=== PATIENT | female | born 1970 | race Caucasian/White ===

== ENCOUNTER 2016-07-28 17:39 | Emergency (ER) | payer BC ==
--- NOTE | 2016-07-28 18:05 | EDM.PDOC ---
ED HISTORY OF PRESENT ILLNESS - General Chief Complaint: Cardiovascular Problem Stated Complaint: HIGH BP Time Seen by Provider: 07/28/16 18:05 Source of Information: Reports: Patient - History of Present Illness INITIAL COMMENTS - FREE TEXT/NARRATIVE: Patient was evaluated at today for headache and right sided neck pain. Headache has been going on for several days, minimal improvement with ibuprofen yesterday, she has not tried medication today. She reports this is NOT the worst headache she has ever had. Her BP was found to be quite elevated at the clinic, so she was referred to ER for further evaluation. She did have labwork there and we have called to ask for these records. - Related Data Allergies/ADRs: Allergies Allergy/AdvReac Type Severity Reaction Status Date / Time No Known Allergies Allergy Verified 07/28/16 18:10 Home Meds: Home Meds Cyclobenzaprine [Flexeril] 5 mg PO BID PRN #15 tablet 07/28/16 [Rx] Lisinopril 10 mg PO DAILY #30 tablet 07/28/16 [Rx] ED ROS GENERAL - Review of Systems Review Of Systems: See Below Constitutional: Reports: no symptoms HEENT: Reports: Ear pain. Denies: Rhinitis, Sinus problem Respiratory: Denies: Shortness of Breath, Wheezing, Cough Cardiovascular: Reports: Blood pressure problem. Denies: Chest pain, Dyspnea on exertion, Edema, Lightheadedness Endocrine: Reports: fatigue GI/Abdominal: Reports: No symptoms Musculoskeletal: Reports: neck pain. Denies: shoulder pain Skin: Reports: no symptoms Neurological: Reports: Headache. Denies: Confusion, Dizziness, Numbness, Tremors, Difficulty Walking, Weakness, Change in Speech, Gait Disturbance Psychiatric: Reports: No symptoms ED EXAM, GENERAL - Physical Exam Exam: See Below Exam Limited By: No limitations General Appearance: alert, WD/WN, mild distress Eye Exam: bilateral eye: PERRL Ears: normal external exam, normal canal, normal TMs Throat/Mouth: Normal inspection, Normal oropharynx Head: atraumatic, normocephalic Neck: normal inspection, non-tender, full range of motion Respiratory/Chest: no respiratory distress, lungs clear, normal breath sounds Cardiovascular: normal peripheral pulses, regular rate, rhythm, no murmur GI/Abdominal: normal bowel sounds, soft, non tender Back Exam: other. No: vertebral tenderness (No cervical spinous tenderness. Muscle spasm to right SCM. FROM without difficutly, did have some pain with bilateral tilt/rotation. ) Neurological: alert, oriented, CN II-XII intact, normal reflexes, no motor/ sensory deficits Psychiatric: normal affect, normal mood Skin Exam: Warm, Dry, Intact Course - Vital Signs Last Recorded V/S: Last Vital Signs Temp 97.6 F 07/28/16 17:59 Pulse 87 07/28/16 21:24 Resp 18 07/28/16 21:24 BP 168/85 H 07/28/16 21:24 Pulse Ox 98 07/28/16 21:24 - Orders/Labs/Meds Orders: Active Orders 24 hr Category Date Time Status Orphenadrine [Norflex] Med 07/28/16 21:00 Active 100 mg PO BEDTIME Medication Orders Orphenadrine Citrate (Norflex) 100 mg PO BEDTIME ZACK Last Admin: 07/28/16 21:22 Dose: Not Given Admin: 07/28/16 18:57 Dose: 100 mg Meds: Medications Generic Name Dose Route Start Last Admin Trade Name Freq PRN Reason Stop Dose Admin Orphenadrine Citrate 100 mg 07/28/16 21:00 07/28/16 21:22 Norflex PO Not Given BEDTIME ZACK Discontinued Medications Generic Name Dose Route Start Last Admin Trade Name Freq PRN Reason Stop Dose Admin Diazepam 2 mg 07/28/16 20:02 07/28/16 20:22 Valium PO 07/28/16 20:03 2 mg ONETIME ONE Administration Sodium Chloride 1,000 mls @ 999 mls/hr 07/28/16 18:21 07/28/16 18:46 Normal Saline IV 07/28/16 19:21 999 mls/hr ONETIME ONE Administration Ketorolac Tromethamine 30 mg 07/28/16 18:22 07/28/16 18:46 Toradol IVPUSH 07/28/16 18:23 30 mg ONETIME ONE Administration Orphenadrine Citrate Confirm 07/28/16 18:56 07/28/16 19:00 Norflex Administered 07/28/16 18:57 Not Given Dose 100 mg .ROUTE .STK-MED ONE - Re-Assessments/Exams Free Text/Narrative Re-Assessment/Exam: Outside lab and EKG reviewed. EKG NSR with Q waves V2-V5, questionable old infarct. Troponin and D-dimer today were negative. CRP <2, ESR 1. Hgb elevated and she will FU on outpatient basis for further investigation of this. Neurologic exam normal, headache completely resolved with 30mg IV ketorolac and 100mg PO Norflex. She continued to have cervical muscle spasm and this was relieved with PO valium. I suspect cervical muscle spasm was causing her headache. I will send her home with muscle relaxant and recommend NSAIDs as well. She will consider chiropractic adjustment and massage. BP decreased to 160/78 with improvement in pain. She is requesting to start medication for this, will start 10mg lisinopril and FU with PCP next week. Advised low-sodium diet as well. Patient verbalized understanding of above plan, she will follow-up with PCP next week or certainly return to ER if needed. 07/28/16 21:29 Departure - Departure Time of Disposition: 20:46 Disposition: Home, Self-Care 01 Condition: good Clinical Impression: Spasm of cervical paraspinous muscle Hypertension Qualifiers: Hypertension type: essential hypertension Qualified Code(s): I10 - Essential ( primary) hypertension Prescriptions: Cyclobenzaprine [Flexeril] 5 mg PO BID PRN #15 tablet PRN Reason: Muscle Spasm Lisinopril 10 mg PO DAILY #30 tablet Instructions: Hypertension, [id number] Referrals: Cosme Manley MD [Primary Care Provider] - Forms: ED Department Discharge Additional Instructions: Rest, naproxen (Aleve) 2x daily, muscle relaxant (cyclobenzaprine) up to 2x daily as needed. Consider chiropractor adjustment and a massage Low sodium diet Start 10mg lisinopril daily for blood pressure Follow-up with Dr Velasco next week or certainly return to ER if needed. - My Orders Last 24 Hours: My Active Orders 07/28/16 21:00 Orphenadrine [Norflex] 100 mg PO BEDTIME - Assessment/Plan Last 24 Hours: My Active Orders 07/28/16 21:00 Orphenadrine [Norflex] 100 mg PO BEDTIME
[2016-07-28] MEDS ORDERED: Sodium Chloride 0.9% 1,000 ML IV ONE (18:21)
[2016-07-28] MEDS ORDERED: Ketorolac 30 MG/ML SDV IVPUSH ONE (18:22)
[2016-07-28] MEDS ORDERED: Orphenadrine 100 MG Tab.ER ONE (18:56)
[2016-07-28] MEDS: Orphenadrine 100 MG Tab.ER PO SCH ×2 (18:57→21:22)
[2016-07-28] MEDS ORDERED: Diazepam 2 MG Tab PO ONE (20:02)
[2016-07-28 21:25] VITALS: BP 168/85
== END 2016-07-28 21:20 | disposition home or self-care (01) ==
LOC: JD.ED 17:39
DX: I10 Essential (primary) hypertension (principal); M62.838 Other muscle spasm; Z79.899 Other long term (current) drug therapy
CPT/HCPCS: 96361; 96374; 99283; A9270; J1885; J7040; 99284

== ENCOUNTER 2020-07-06 15:21 | Emergency (ER) | payer BC ==
[2020-07-06 15:35] VITALS: BP 139/73; PULSE 99
[2020-07-06] MEDS ORDERED: Aspirin 81 MG Tab.Chew PO ONE (15:42)
[2020-07-06] MEDS ORDERED: Sodium Chloride 0.9% 10 ML Syringe FLUSH PRN (15:42)
[2020-07-06] MEDS ORDERED: HYDROmorphone 1 MG/ML Syringe IVPUSH ONE (15:43)
--- NOTE | 2020-07-06 15:50 | EDM.PDOC ---
ED HPI GENERAL MEDICAL PROBLEM - General Chief Complaint: Chest Pain Stated Complaint: CHEST PAIN Time Seen by Provider: 07/06/20 15:31 Source of Information: Reports: Patient History Limitations: Reports: No Limitations - History of Present Illness INITIAL COMMENTS - FREE TEXT/NARRATIVE: The patient presents with chest pain. This started about 1/2 hour before arrival. She was in her car picking up her son from school. She denies shortness of breath but she did get diaphoretic. She has no abdominal pain, nausea or vomiting. She has never had this happen before. She has no history of heart disease. She does smoke. She has a history of hypertension. She has no history of hypercholesterolemia or diabetes. Onset: Sudden Duration: Minutes: Location: Reports: Chest Quality: Reports: Sharp Severity: Severe Improves with: Reports: None Worsens with: Reports: None Associated Symptoms: Reports: Chest Pain. Denies: Cough, Fever/Chills, Headaches, Nausea/Vomiting, Seizure, Shortness of Breath Chest Pain Score (Numeric/FACES): 10 - Related Data Allergies Allergy/AdvReac Type Severity Reaction Status Date / Time No Known Allergies Allergy Verified 07/06/20 15:29 Home Meds: Home Meds Dimethyl Fumarate [Tecfidera] 1 tab PO DAILY 07/06/20 [History] Gabapentin [Neurontin] 300 mg PO BEDTIME 07/06/20 [History] hydroCHLOROthiazide [Hydrochlorothiazide] 1 tab PO DAILY 07/06/20 [History] Past Medical History - Past Health History Medical/Surgical History: Denies Medical/Surgical History HEENT History: Reports: None Cardiovascular History: Reports: Hypertension Respiratory History: Reports: Bronchitis, Recurrent, Sleep Apnea Gastrointestinal History: Reports: None Genitourinary History: Reports: None [employer] History: Reports: None Musculoskeletal History: Reports: None Neurological History: Reports: MS Psychiatric History: Reports: None Endocrine/Metabolic History: Reports: Obesity/BMI 30+ Hematologic History: Reports: None Immunologic History: Reports: None Oncologic (Cancer) History: Reports: None Dermatologic History: Reports: None - Infectious Disease History Infectious Disease History: Reports: Mumps - Past Surgical History HEENT Surgical History: Reports: None Female Surgical History: Reports: Salpingo-Oophorectomy Musculoskeletal Surgical History: Reports: None Social & Family History - Family History Family Medical History: No Pertinent Family History Cardiac: Reports: CAD, [place] Oncologic: Reports: Bone, Breast - Tobacco Use Tobacco Use Status *Q: Current Every Day Tobacco User Years of Tobacco use: 30 Packs/Tins Daily: 1 - Caffeine Use Caffeine Use: Reports: Coffee, Soda - Recreational Drug Use Recreational Drug Use: No ED ROS GENERAL - Review of Systems Review Of Systems: See Below Constitutional: Reports: No Symptoms HEENT: Reports: No Symptoms Respiratory: Reports: No Symptoms Cardiovascular: Reports: Chest Pain Endocrine: Reports: No Symptoms GI/Abdominal: Reports: No Symptoms : Reports: No Symptoms Musculoskeletal: Reports: No Symptoms Neurological: Reports: No Symptoms ED EXAM, GENERAL - Physical Exam Exam: See Below Exam Limited By: No Limitations General Appearance: Alert, No Apparent Distress Ears: Normal External Exam Nose: Normal Inspection Head: Atraumatic, Normocephalic Neck: Normal Inspection Respiratory/Chest: No Respiratory Distress, Lungs Clear, Normal Breath Sounds Cardiovascular: Regular Rate, Rhythm, No Edema, No Murmur GI/Abdominal: Soft, Non-Tender, No Organomegaly, No Mass Back Exam: Normal Inspection Extremities: Normal Inspection Neurological: Alert, Oriented, No Motor/Sensory Deficits #1 Interpretation EKG Date: 07/06/20 Time: 15:32 Rhythm: NSR Rate (Beats/Min): 96 [place]: Normal P-Wave: Present QRS: Normal ST-T: Normal QT: Normal EKG Interpretation Comments: Q waves in the anterior leads #2 Interpretation EKG Date: 07/06/20 Time: 17:50 Rhythm: NSR Rate (Beats/Min): 72 [place]: Normal P-Wave: Present QRS: Normal ST-T: Normal QT: Normal Comparison: No Change EKG Interpretation Comments: Q waves in the anterior leads Course - Vital Signs Last Recorded V/S: Last Vital Signs Temp 97.0 F 07/06/20 15:33 Pulse 99 07/06/20 15:33 Resp 18 07/06/20 15:33 BP 139/73 07/06/20 15:33 Pulse Ox 99 07/06/20 15:33 - Orders/Labs/Meds Orders: Active Orders 24 hr Category Date Time Status Cardiac Monitoring [RC] . DIRECTED Care 07/06/20 15:42 Active EKG Documentation Completion [RC] ASDIRECTED Care 07/06/20 17:34 Active EKG Documentation Completion [RC] STAT Care 07/06/20 15:43 Active Peripheral IV Care [RC] . DIRECTED Care 07/06/20 15:43 Active Sodium Chloride 0.9% [Saline Flush] Med 07/06/20 15:42 Active 10 ml FLUSH ASDIRECTED PRN Peripheral IV Insertion Adult [OM.PC] Stat Oth 07/06/20 15:42 Ordered EKG 12 Lead [EK] Stat Ther 07/06/20 17:34 Ordered Medication Orders Sodium Chloride (Saline Flush) 10 ml FLUSH ASDIRECTED PRN PRN Reason: Keep Vein Open Last Admin: 07/06/20 15:54 Dose: 10 ml Documented by: ANGEL Labs: Laboratory Tests 07/06/20 07/06/20 07/06/20 Range/Units 15:40 15:40 15:40 WBC 5.17 (3.98-10.04) K/mm3 RBC 4.91 (3.98-5.22) M/mm3 Hgb 14.8 (11.2-15.7) gm/dl Hct 43.9 (34.1-44.9) % MCV 89.4 (79.4-94.8) fl MCH 30.1 (25.6-32.2) pg MCHC 33.7 (32.2-35.5) g/dl RDW Std Deviation 55.9 H (36.4-46.3) fL Plt Count 229 (182-369) K/mm3 MPV 10.9 (9.4-12.3) fl Neut % (Auto) 63.9 (34.0-71.1) % Lymph % (Auto) 19.3 (19.3-51.7) % [place] % (Auto) 13.9 H (4.7-12.5) % Eos % (Auto) 2.3 (0.7-5.8) Baso % (Auto) 0.6 (0.1-1.2) % Neut # (Auto) 3.30 (1.56-6.13) K/mm3 Lymph # (Auto) 1.00 L (1.18-3.74) K/mm3 [place] # (Auto) 0.72 H (0.24-0.36) K/mm3 Eos # (Auto) 0.12 (0.04-0.36) K/mm3 Baso # (Auto) 0.03 (0.01-0.08) K/mm3 D-Dimer, Quantitative < 0.19 L (0.19-0.50) mg/L Sodium 139 (136-145) mEq/L Potassium 3.5 (3.5-5.1) mEq/L Chloride 100 (98-107) mEq/L Carbon Dioxide 24 (21-32) mEq/L Anion Gap 18.5 H (5-15) BUN 20 H (7-18) mg/dL Creatinine 1.1 H (0.55-1.02) mg/dL Est Cr Clr Drug Dosing 50.61 mL/min Estimated GFR (MDRD) 53 (>60) mL/min BUN/Creatinine Ratio 18.2 H (14-18) Glucose 107 H (74-106) mg/dL Calcium 9.8 (8.5-10.1) mg/dL Total Bilirubin 0.5 (0.2-1.0) mg/dL AST 66 H (15-37) U/L ALT 65 H (14-59) U/L Alkaline Phosphatase 103 (46-116) U/L Troponin I < 0.017 (0.00-0.056) ng/mL Total Protein 8.4 H (6.4-8.2) g/dl Albumin 3.9 (3.4-5.0) g/dl Globulin 4.5 gm/dL Albumin/Globulin Ratio 0.9 L (1-2) 07/06/20 Range/Units 17:39 WBC (3.98-10.04) K/mm3 RBC (3.98-5.22) M/mm3 Hgb (11.2-15.7) gm/dl Hct (34.1-44.9) % MCV (79.4-94.8) fl MCH (25.6-32.2) pg MCHC (32.2-35.5) g/dl RDW Std Deviation (36.4-46.3) fL Plt Count (182-369) K/mm3 MPV (9.4-12.3) fl Neut % (Auto) (34.0-71.1) % Lymph % (Auto) (19.3-51.7) % [place] % (Auto) (4.7-12.5) % Eos % (Auto) (0.7-5.8) Baso % (Auto) (0.1-1.2) % Neut # (Auto) (1.56-6.13) K/mm3 Lymph # (Auto) (1.18-3.74) K/mm3 [place] # (Auto) (0.24-0.36) K/mm3 Eos # (Auto) (0.04-0.36) K/mm3 Baso # (Auto) (0.01-0.08) K/mm3 D-Dimer, Quantitative (0.19-0.50) mg/L Sodium (136-145) mEq/L Potassium (3.5-5.1) mEq/L Chloride (98-107) mEq/L Carbon Dioxide (21-32) mEq/L Anion Gap (5-15) BUN (7-18) mg/dL Creatinine (0.55-1.02) mg/dL Est Cr Clr Drug Dosing mL/min Estimated GFR (MDRD) (>60) mL/min BUN/Creatinine Ratio (14-18) Glucose (74-106) mg/dL Calcium (8.5-10.1) mg/dL Total Bilirubin (0.2-1.0) mg/dL AST (15-37) U/L ALT (14-59) U/L Alkaline Phosphatase (46-116) U/L Troponin I < 0.017 (0.00-0.056) ng/mL Total Protein (6.4-8.2) g/dl Albumin (3.4-5.0) g/dl Globulin gm/dL Albumin/Globulin Ratio (1-2) Meds: Medications Generic Name Dose Route Start Last Admin Trade Name Freq PRN Reason Stop Dose Admin Sodium Chloride 10 ml 07/06/20 15:42 07/06/20 15:54 Saline Flush FLUSH 10 ml ASDIRECTED PRN Administration Keep Vein Open Discontinued Medications Generic Name Dose Route Start Last Admin Trade Name Freq PRN Reason Stop Dose Admin Aspirin 324 mg 07/06/20 15:42 07/06/20 15:51 Aspirin PO 07/06/20 15:43 324 mg ONETIME ONE Administration Hydromorphone HCl 1 mg 07/06/20 15:43 07/06/20 15:52 Dilaudid IVPUSH 07/06/20 15:44 1 mg ONETIME ONE Administration - Re-Assessments/Exams Free Text/Narrative Re-Assessment/Exam: 07/06/20 15:52 I ordered an IV saline lock, EKG, aspirin, dilaudid 1mg IV, CXR and labs. 07/06/20 17:13 Her CXR looks good. Her EKG shows a NSR with no acute changes. Her CBC looks good. Her AST was elevated at 66. Her ALT was elevated at 65. Her troponin is negative. Her creatinine is elevated at 1.1. She feels much better. I will recheck a troponin. 07/06/20 18:22 Her repeat EKG shows no changes. Her repeat troponin was negative. She feels better. I will have her follow up with Dr Garcia. Departure - Departure Time of Disposition: 18:25 Disposition: Home, Self-Care 01 Condition: Good Clinical Impression: Atypical chest pain Referrals: Tammy Garcia MD [Primary Care Provider] - 1 Week Forms: ED Department Discharge Additional Instructions: Take your medications as prescribed. Follow up with Dr Garcia within a week. Please return if you are worse. Sepsis Event Note (ED) - Evaluation Sepsis Screening Result: No Definite Risk - Focused Exam Vital Signs: Vital Signs Temp Pulse Resp BP Pulse Ox 07/06/20 15:33 97.0 F 99 18 139/73 99 - My Orders Last 24 Hours: My Active Orders 07/06/20 15:42 Cardiac Monitoring [RC] . DIRECTED Sodium Chloride 0.9% [Saline Flush] 10 ml FLUSH ASDIRECTED PRN Peripheral IV Insertion Adult [OM.PC] Stat 07/06/20 15:43 EKG Documentation Completion [RC] STAT Peripheral IV Care [RC] . DIRECTED 07/06/20 17:34 EKG Documentation Completion [RC] ASDIRECTED EKG 12 Lead [EK] Stat - Assessment/Plan Last 24 Hours: My Active Orders 07/06/20 15:42 Cardiac Monitoring [RC] . DIRECTED Sodium Chloride 0.9% [Saline Flush] 10 ml FLUSH ASDIRECTED PRN Peripheral IV Insertion Adult [OM.PC] Stat 07/06/20 15:43 EKG Documentation Completion [RC] STAT Peripheral IV Care [RC] . DIRECTED 07/06/20 17:34 EKG Documentation Completion [RC] ASDIRECTED EKG 12 Lead [EK] Stat
--- NOTE | 2020-07-06 16:29 | CR ---
Chest: Portable view of the chest was obtained. Comparison: No previous chest imaging is available. Heart size and mediastinum are normal for portable technique. Minimal density is seen within the left lung base. Uncertain if this represents minimal pneumonia or atelectasis. Lungs otherwise are clear. Bony structures show nothing acute. Impression: 1. Minimal density within the left lung base. Uncertain if this represents slight atelectasis or minimal pneumonia. Please correlate with the patient's symptoms. 2. Portable chest x-ray is otherwise unremarkable. Diagnostic code #3
== END 2020-07-06 18:35 | disposition home or self-care (01) ==
LOC: JD.ED 15:21
DX: R07.89 Other chest pain (principal); I10 Essential (primary) hypertension; F17.200 Nicotine dependence, unspecified, uncomplicated; G35 Multiple sclerosis; E66.9 Obesity, unspecified; Z68.33 Body mass index [BMI] 33.0-33.9, adult; Z79.899 Other long term (current) drug therapy
CPT/HCPCS: 36415; 71045; 80053; 84484; 85025; 85379; 93005; 96374; 99285; A9270; J1170; 93010; 99284

== ENCOUNTER → 2021-05-23 | Day surgery (SDC) | payer OTHER ==
[~2021-05-23] MED LIST: Bupivacaine 0.5% 30 ML SDV ONE; Dexamethasone 4 MG/ML 5 ML MDV ONE; HYDROmorphone 0.5 MG/0.5 ML Syringe IVPUSH PRN; HYDROmorphone 0.5 MG/0.5 ML Syringe ONE; Ketorolac 30 MG/ML SDV ONE; Lactated Ringers 1,000 ML IV SCH; Lactated Ringers 1,000 ML ONE; Lidocaine 1% 4 ML ONE; Lidocaine 1%/Sod Bicarbonate in NS 8.4% 1 ML Syringe IDERM PRN; Midazolam 1 MG/ML 2 ML SDV ONE; Ondansetron 4 MG/2 ML SDV IVPUSH PRN; Ondansetron 4 MG/2 ML SDV ONE; Propofol 200 MG/20 ML SDV ONE; Rocuronium 50 MG/5 ML Vial ONE; Sodium Chloride 0.9% 10 ML Syringe FLUSH SCH; ceFAZolin 1 GM Vial ONE; diphenhydrAMINE 50 MG/ML SDV IVPUSH PRN; fentaNYL 100 MCG/2 ML SDV IVPUSH PRN; fentaNYL 100 MCG/2 ML SDV ONE; fentaNYL 250 MCG/5 ML SDV ONE
[2021-05-23 13:17] VITALS: BP 125/68; PULSE 78
== END | disposition home or self-care (01) ==
LOC: JD.SDS 08:10
PROVIDERS: ATTEND Surgery
DX: K80.12 Calculus of gallbladder with acute and chronic cholecystitis without obstruction (principal); I10 Essential (primary) hypertension; F17.210 Nicotine dependence, cigarettes, uncomplicated; K21.9 Gastro-esophageal reflux disease without esophagitis; E66.9 Obesity, unspecified; Z98.890 Other specified postprocedural states; Z79.899 Other long term (current) drug therapy; Z68.32 Body mass index [BMI] 32.0-32.9, adult
CPT/HCPCS: 47562; J0690; J1100; J1170; J1885; J2250; J2405; J2704; J2710; J3010; J3490; J7120; 00790

== ENCOUNTER 2023-05-28 06:56 | Day surgery (SDC) | payer OTHER ==
[~2023-05-28 06:56] MED LIST changes: -Bupivacaine 0.5% 30 ML SDV ONE; -Dexamethasone 4 MG/ML 5 ML MDV ONE; -HYDROmorphone 0.5 MG/0.5 ML Syringe IVPUSH PRN; -HYDROmorphone 0.5 MG/0.5 ML Syringe ONE; -Ketorolac 30 MG/ML SDV ONE; -Lactated Ringers 1,000 ML ONE; -Lidocaine 1% 4 ML ONE; -Lidocaine 1%/Sod Bicarbonate in NS 8.4% 1 ML Syringe IDERM PRN; -Midazolam 1 MG/ML 2 ML SDV ONE; -Ondansetron 4 MG/2 ML SDV IVPUSH PRN; -Ondansetron 4 MG/2 ML SDV ONE; -Propofol 200 MG/20 ML SDV ONE; -Rocuronium 50 MG/5 ML Vial ONE; +Sodium Chloride 0.9% 10 ML Syringe FLUSH PRN; -ceFAZolin 1 GM Vial ONE; -diphenhydrAMINE 50 MG/ML SDV IVPUSH PRN; -fentaNYL 100 MCG/2 ML SDV IVPUSH PRN; -fentaNYL 100 MCG/2 ML SDV ONE; -fentaNYL 250 MCG/5 ML SDV ONE
[2023-05-28] MEDS ORDERED: Pantoprazole 40 MG Tab.CR PO SCH (07:05)
[2023-05-28] MEDS ORDERED: Rocuronium 50 MG/5 ML Vial ONE ×2 (07:13→08:07)
[2023-05-28] MEDS ORDERED: Lidocaine 1% 30 ML SDV ONE (07:24)
[2023-05-28] MEDS ORDERED: EPINEPHrine 1 MG/ML SDV ONE (07:24)
[2023-05-28] MEDS ORDERED: Bupivacaine 0.5% 30 ML SDV ONE (07:24)
[2023-05-28] MEDS ORDERED: Acetaminophen 325 MG Tab PO SCH (07:30)
[2023-05-28] MEDS ORDERED: fentaNYL 100 MCG/2 ML SDV ONE (08:07)
[2023-05-28] MEDS ORDERED: Sugammadex Sodium 200 MG/2 ML VIAL ONE (08:07)
[2023-05-28] MEDS ORDERED: Dexamethasone 4 MG/ML 5 ML MDV ONE (08:07)
[2023-05-28] MEDS ORDERED: Lidocaine 2% 5 ML SDV ONE (08:07)
[2023-05-28] MEDS ORDERED: Ondansetron 4 MG/2 ML SDV ONE (08:07)
[2023-05-28] MEDS ORDERED: Propofol 200 MG/20 ML SDV ONE (08:07)
[2023-05-28] MEDS ORDERED: ceFAZolin 2 GM Vial ONE (08:07)
[2023-05-28] MEDS ORDERED: Midazolam 1 MG/ML 2 ML SDV ONE ×2 (08:08→08:29)
[2023-05-28] MEDS ORDERED: Lidocaine 2% 11 ML Jelly Filled Syringe ONE (08:15)
[2023-05-28] MEDS ORDERED: Lactated Ringers 1,000 ML ONE (09:20)
[2023-05-28] MEDS ORDERED: Lidocaine 1% 2 ML ONE (09:22)
[2023-05-28] MEDS ORDERED: Ketorolac 15 MG/ML SDV ONE (09:22)
[2023-05-28] MEDS ORDERED: HYDROmorphone 0.5 MG/0.5 ML Syringe ONE (09:28)
[2023-05-28] MEDS ORDERED: fentaNYL 100 MCG/2 ML SDV IVPUSH PRN (10:11)
[2023-05-28] MEDS ORDERED: HYDROmorphone 0.5 MG/0.5 ML Syringe IVPUSH PRN (10:11)
[2023-05-28] MEDS ORDERED: Ondansetron 4 MG/2 ML SDV IVPUSH PRN (10:11)
[2023-05-28] MEDS ORDERED: Acetaminophen/oxyCODONE 325-5 MG Tab PO PRN (10:28)
[2023-05-28] MEDS ORDERED: Ibuprofen 600 MG Tab PO PRN (10:30)
[2023-05-28 11:58] VITALS: BP 110/63; PULSE 80
== END 2023-05-28 12:05 | disposition home or self-care (01) ==
LOC: JD.SDS 06:56
PROVIDERS: ATTEND Surgery
DX: K43.2 Incisional hernia without obstruction or gangrene (principal); I10 Essential (primary) hypertension; F17.210 Nicotine dependence, cigarettes, uncomplicated; Z98.890 Other specified postprocedural states; Z79.899 Other long term (current) drug therapy
CPT/HCPCS: 49591; 87641; A9270; C1781; J0171; J0665; J0690; J1100; J1170; J1885; J2250; J2405; J2704; J3010; J3490; J7120; 00790